=== PATIENT | female | born 1950 | race Caucasian/White ===

== ENCOUNTER 2019-01-14 17:45 | Emergency (ER) | payer MEDICARE, MEDICAID ==
[~2019-01-14] VITALS: Ht 165.1 cm; Wt 87.5 kg
[~2019-01-14 17:45] MED LIST: [UNRECOGNIZED DRUG - REMARK]; [UNRECOGNIZED DRUG - REMARK]
[2019-01-14 18:05] LABS: BASOPHILS % (AUTO) 0.2 % (0.0-2.0); HEMATOCRIT 35 % (33-45); LYMPHOCYTES # (AUTO) 2.3 /CMM (0.8-4.8); LYMPHOCYTES % (AUTO) 32.9 % (20.0-44.0); MEAN CORPUSCULAR HGB CONC 34 g/dl (31.0-36.0); MEAN CORPUSCULAR VOLUME 91 fL (82-100); MONOCYTES # (AUTO) 0.5 /CMM (0.1-1.30); MONOCYTES % (AUTO) 6.7 % (2.0-12.0); NEUTROPHILS # (AUTO) 3.9 /CMM (1.8-8.9); NEUTROPHILS % (AUTO) 56.2 % (43.0-81.0); PLATELET COUNT (AUTO) 212 /CMM (150-450); RED BLOOD CELL COUNT(AUTO) 3.85 MIL/uL (4.0-5.2); WHITE BLOOD COUNT (AUTO) 6.9 K/uL (4.3-11.0)
[2019-01-14 18:13] LABS: CALCIUM, SERUM 9.2 mg/dL (8.5-10.1); CARBON DIOXIDE 29 mmol/L (21-32); CHLORIDE 105 mmol/L (98-107); CREATININE 0.7 mg/dL (0.6-1.3); GLUCOSE 120 mg/dL (74-106); POTASSIUM 4.1 mmol/L (3.5-5.1); SODIUM SERUM 140 mmol/L (136-145); UREA NITROGEN, BLOOD 19 mg/dL (7-18)
[2019-01-14 18:19] LABS: ALANINE AMINOTRANSFERASE 29 U/L (12-78); ALBUMIN 3.6 g/dL (3.4-5.0); ALKALINE PHOSPHATASE 100 U/L (46-116); ASPARTATE AMINOTRANSFERASE 20 U/L (15-37); BILIRUBIN,TOTAL 0.2 mg/dL (0.2-1.0); TOTAL PROTEIN, SERUM 6.7 g/dL (6.4-8.2)
[2019-01-14] MEDS ORDERED: METO25TA6 PO (18:36)
[2019-01-14] MEDS ORDERED: CLON0.1T PO (18:36)
[2019-01-14] MEDS ORDERED: MEMA10TA PO (18:36)
[2019-01-14] MEDS ORDERED: ONDANSETRON HCL/PF 4 MG/2 ML VIAL ONE (18:48)
[2019-01-14] MEDS ORDERED: ONDANSETRON HCL/PF 4 MG/2 ML VIAL IVP ONE (19:00)
--- NOTE | 2019-01-14 19:08 | NUR ---
PIV removed. Rx provided. Patient discharged to home in stable condition. Written and verbal after care instructions given. Patient verbalizes understanding of instruction.
[2019-01-14 19:12] VITALS: BP 140/84
== END 2019-01-14 19:13 | disposition home or self-care (01) ==
LOC: ER 17:51
DX: R53.1 Weakness (principal); I10 Essential (primary) hypertension; R60.1 Generalized edema; R00.2 Palpitations
CPT/HCPCS: 36415; 71045; 80048; 80076; 84484; 85025; 93005; 96374; 99284; J2405

== ENCOUNTER 2019-02-13 14:27 | Outpatient (CLI) | payer MEDICARE, OTHER ==
[~2019-02-13] VITALS: Ht 165.1 cm; Wt 85.3 kg
[~2019-02-13 14:27] MED LIST changes: +CLON0.1T PO; +MEMA10TA PO; +METO25TA6 PO; -[UNRECOGNIZED DRUG - REMARK]; -[UNRECOGNIZED DRUG - REMARK]
[2019-02-13] MEDS ORDERED: CT SWABBABLE VALVE TRANS SET 1 EA INFUS.SET MC ONE (14:46)
[2019-02-13] MEDS ORDERED: IOHEXOL-350 100 ML VIAL IV ONE (14:46)
[2019-02-13] MEDS ORDERED: IV NS 0.9% 250 ML IV ONE (14:46)
[2019-02-13] MEDS ORDERED: NITROGLYCERIN 0.4 MG/TAB BOTTLE ONE (15:04)
[2019-02-13] MEDS ORDERED: METOPROLOL TARTRATE INJ 5 MG/5 ML AMPUL ONE (15:05)
[2019-02-13 15:13] LABS: CALCIUM, SERUM 9.3 mg/dL (8.5-10.1); CREATININE 0.8 mg/dL (0.6-1.3); POTASSIUM 4.4 mmol/L (3.5-5.1)
[2019-02-13] MEDS ORDERED: METOPROLOL TARTRATE INJ 5 MG/5 ML AMPUL IVP ONE (15:30)
[2019-02-13] MEDS ORDERED: IV NS 0.9% 500 ML IV PRN (15:30)
[2019-02-13] MEDS ORDERED: NITROGLYCERIN 0.4 MG/TAB BOTTLE SL ONE (15:30)
--- NOTE | 2019-02-13 15:50 | NUR ---
ICU/RN: Pt tolerated procedure well; VSS back to baseline. IV HL d/c'd catheter tip intact. Discharge instructions provided. Verbalized understanding.
[2019-02-13 16:00] VITALS: BP 110/67
== END 2019-02-13 23:59 | disposition home or self-care (01) ==
LOC: CT 14:27
PROVIDERS: ATTEND Internal Medicine Interventional Cardiology
DX: I71.2 Thoracic aortic aneurysm, without rupture (principal); I36.1 Nonrheumatic tricuspid (valve) insufficiency; I70.8 Atherosclerosis of other arteries; I27.20 Pulmonary hypertension, unspecified; I10 Essential (primary) hypertension; E78.5 Hyperlipidemia, unspecified; Z72.0 Tobacco use
CPT/HCPCS: 36415; 75574; 80048; J3490; J7050; Q9967

== ENCOUNTER 2019-02-13 15:59 | Emergency (ER) | payer MEDICARE, OTHER ==
[~2019-02-13] VITALS: Ht 175.3 cm; Wt 83.9 kg
[2019-02-13 16:04] VITALS: BP 114/60
--- NOTE | 2019-02-13 16:45 | NUR ---
DR. WINTERS AT BEDSIDE FOR EVAL.
== END 2019-02-13 17:01 | disposition home or self-care (01) ==
LOC: ER 15:59
DX: L03.211 Cellulitis of face (principal); I10 Essential (primary) hypertension; Z60.2 Problems related to living alone; Z79.899 Other long term (current) drug therapy